=== PATIENT | male | born 1985 | race Caucasian/White ===

== ENCOUNTER 2017-06-27 11:12 | Emergency (ER) | payer OTHER ==
[~2017-06-27] VITALS: Ht 177.8 cm; Wt 94.5 kg
[~2017-06-27 11:12] MED LIST: HYDROCODON-ACE1 EAC7 PO; NOHOMEMEDS; PROMETHAZINE HC25 M1 PO; ZANTAC150 MG PO
[2017-06-27 11:41] LABS: HEMATOCRIT 44.5 % (38.0-50.0); HEMOGLOBIN 15.9 G/DL (12.5-16.6); MCH 31.4 PG (29.0-34.0); MCHC 35.7 G/DL (30.0-36.0); MCV 87.9 FL (86-99); PLATELET COUNT 184 K/uL (156-360); RBC DIS.WIDTH-CV 12.4 % (11.8-14.6); RBC DIS.WIDTH-SD 39.7 % (39-53); RED BLOOD COUNT 5.06 M/uL (4.00-5.50)
[2017-06-27 11:50] LABS: CHLORIDE 103 mEq/L (99-109); POTASSIUM 3.9 mEq/L (3.7-5.4); SODIUM 137 mEq/L (136-147)
[2017-06-27 11:52] LABS: GLUCOSE 113 mg/dL (70-99)
[2017-06-27 11:55] LABS: ALKALINE PHOSPHATASE 86 IU/L (3-129); TOTAL BILIRUBIN 1.9 mg/dL (0.0-1.0)
[2017-06-27 11:56] LABS: CREATININE 0.9 mg/dL (0.6-1.3); GFR ESTIMATE (CALCULATED) > 59 mL/min/ (58.99-99999)
[2017-06-27 11:57] LABS: AST (GOT) 14 IU/L (2-34); UREA NITROGEN (BUN) 11 mg/dL (9-23)
[2017-06-27 11:59] LABS: ALT (GPT) 21 IU/L (3-49); LIPASE 10 U/L (1.0-51.0)
[2017-06-27 12:36] LABS: APPEARANCE CLEAR ((CLEAR)); BILIRUBIN NEGATIVE; BLOOD SMALL; COLOR YELLOW ((YELLOW)); GLUCOSE (STRIP) NEGATIVE; KETONES NEGATIVE; LEUKOCYTES NEGATIVE; NITRITE NEGATIVE; PROTEIN (STRIP) NEGATIVE; SPECIFIC GRAVITY 1.016 (1.000-1.030); UROBILINOGEN 0.2 MG/DL (0.2-1.0)
[2017-06-27 12:50] LABS: DIRECT BILIRUBIN 0.6 mg/dL (0.0-0.3)
[2017-06-27 12:52] LABS: BACTERIA NONE SEEN /HPF; EPITHELIAL CELLS RARE /HPF; MUCUS TRACE /LPF; UCUL ADDED? NO; WHITE BLOOD CELLS 0-5 /HPF (0-5)
[2017-06-27] MEDS ORDERED: CIPRO500 MG PO (14:26)
[2017-06-27] MEDS ORDERED: FLAGYL500 MG PO (14:26)
[2017-06-27] MEDS ORDERED: LEVSIN-SL0.125 MG SL (14:26)
[2017-06-27 15:03] VITALS: BP 140/84
[2017-06-27 15:38] LABS: C DIFF TOXIN POSITIVE (NEGATIVE)
== END 2017-06-27 15:03 | disposition home or self-care (01) ==
LOC: EME 11:12
PROVIDERS: Nurse Practitioner Family
DX: K52.9 Noninfective gastroenteritis and colitis, unspecified (principal); K40.90 Unilateral inguinal hernia, without obstruction or gangrene, not specified as recurrent; K31.84 Gastroparesis
CPT/HCPCS: 74177; 80053; 81003; 82248; 83690; 85027; 87045; 87077; 87493; 87506; 99281; 99285; J3010; J7030